=== PATIENT | female | born 1980 | race Caucasian/White ===

== ENCOUNTER 2021-01-25 17:55 | Emergency (ER) | payer OTHER ==
[~2021-01-25] VITALS: Ht 170.2 cm; Wt 50.8 kg
[2021-01-25] MEDS ORDERED: HORIZANT600 MG PO (18:54)
[2021-01-25] MEDS ORDERED: TYLENOL EXTRA500 MG PO (18:54)
[2021-01-25] MEDS ORDERED: XARELTO15 MG PO (18:54)
[2021-01-25] MEDS ORDERED: DILAUDID2 MG PO (18:55)
== END 2021-01-25 22:39 | disposition home or self-care (01) ==
LOC: ED 17:55
DX: S30.0XXA Contusion of lower back and pelvis, initial encounter (principal); S42.301A Unspecified fracture of shaft of humerus, right arm, initial encounter for closed fracture; S92.902A Unspecified fracture of left foot, initial encounter for closed fracture; S82.891A Other fracture of right lower leg, initial encounter for closed fracture; V89.9XXA Person injured in unspecified vehicle accident, initial encounter; F17.200 Nicotine dependence, unspecified, uncomplicated; Z79.899 Other long term (current) drug therapy
CPT/HCPCS: 72220; 84703; 99283-25